=== PATIENT | female | born 1930 | race Hispanic/Latino ===

== ENCOUNTER 2017-12-17 09:55 | Inpatient (IN) | payer MEDICARE, OTHER ==
--- NOTE | 2017-12-17 10:52 | ED PDOC ---
Arrival/HPI - General Chief Complaint: Abdominal Pain Time Seen by Provider: 12/17/17 10:20 Historian: Patient, Family - History of Present Illness Narrative History of Present Illness (Text): 12/17/17 10:41 87 year old female, with past medical history of hypertension, deafness, blood transfusion, diverticulitis, GI bleed, splenic flexure bleed, and an IVC filter , presents to the Emergency Department accompanied by family via EMS for medical evaluation s/p fall yesterday. Patient states she lives home alone with family visiting few days a week. As per patient, she fell yesterday in her bathtub after taking a shower and was unable to get out of the tub for 18 hours. Patient was later found by family, who called EMS yesterday for evaluation. Upon EMS arrival patient denied any medical complaints and refused to come to the hospital. Patient denied hitting her head or any loss of consciousness at the time but family worries she may have passed out secondary to the incident. However, today, patient has been experiencing chest pressure associated with left shoulder, left hip and bilateral ankle discomfort prompting her to present to the Emergency department for evaluation. Patient additionally states "funny feeling" localized to her epigastric area associated with nausea and "burping." Patient currently denies any fevers, chills, headache , dizziness, chest pain, shortness of breath, dyspnea on exertion, cough, abdominal pain, vomiting, diarrhea, back pain, neck pain, or any other complaints. Patient states she is currently waiting to hear back from her PMD regarding a visiting nurse. PMD: Dr. Moore Time/Duration: 24 hours Symptom Onset: Gradual Symptom Course: Unchanged Quality: Aching Activities at Onset: Light Context: Home Past Medical History - Provider Review Nursing Documentation Reviewed: Yes - Infectious Disease Hx of Infectious Diseases: None - Cardiac Hx Cardiac Disorders: Yes Hx Hypertension: Yes - Pulmonary Hx Respiratory Disorders: No - Neurological Hx Neurological Disorder: No - HEENT Hx HEENT Disorder: Yes Hx Deafness: Yes - Renal Hx Renal Disorder: No - Endocrine/Metabolic Hx Endocrine Disorders: No - Hematological/Oncological Other/Comment: GI bleed - Integumentary Hx Dermatological Disorder: No - Musculoskeletal/Rheumatological Hx Falls: No - Gastrointestinal Hx Gastrointestinal Disorders: (gi bleed diverticulitis) - Genitourinary/Gynecological Hx Reproductive Disorders: No - Psychiatric Hx Psychophysiologic Disorder: No Hx Substance Use: No - Surgical History Other/Comment: breast biopsy - Anesthesia Hx Anesthesia Reactions: No Hx Malignant Hyperthermia: No Family/Social History - Physician Review Nursing Documentation Reviewed: Yes Family/Social History: No Known Family HX Smoking Status: Never Smoked Hx Alcohol Use: No Hx Substance Use: No Allergies/Home Meds Allergies/Adverse Reactions: Allergies No Known Allergies Allergy (Verified 03/13/15 09:39) Home Medications: Home Meds Medication Instructions Recorded Confirmed Ramipril 2.5 mg PO DAILY 03/05/15 12/17/17 Review of Systems - Physician Review All systems were reviewed & negative as marked: Yes - Review of Systems Constitutional: absent: Fevers Respiratory: absent: SOB, Cough Cardiovascular: absent: Chest Pain, OLIVEIRA Gastrointestinal: Nausea, Other ("funny feeling" to epigastric area). absent: Abdominal Pain, Diarrhea, Vomiting Musculoskeletal: Other (left shoulder, left hip and bilateral ankle discomfort.) . absent: Back Pain, Neck Pain Neurological: absent: Headache, Dizziness Physical Exam - Physical Exam Narrative Physical Exam (Text): 12/17/17 10:50 Gen: VS reviewed, alert, well developed, well nourished, nontoxic, mild distress. ENT: normal pharynx. Eye: EOMI, PERRL. Neck: no JVD, supple, no adenopathy. No midline tenderness. CV: regular rate, regular rhythm, no rubs, no murmur, no gallops, S1, S2, pulses equal and strong. Pulm: no distress, clear to auscultation, no wheeze, no rhonchi, breath sounds equal, no rales. Abd: soft, nontender, no guarding, no rebound, no rigidity, normal bowel sounds. Ext: Trace edema to bilateral lower extremity. Moderate tenderness to bilateral ankle. Mild to moderate left shoulder tenderness. Moderate left lateral hip tenderness. Skin: good color, no rash, no cyanosis. Healing linear laceration on right phalanges between DIP and PIP. Psych: responds appropriately to questions, normal affect. Neuro: oriented x 3, CN2-12 intact grossly, motor intact, sensation intact. Vital Signs Reviewed: Yes Vital Signs Temp Pulse Resp BP Pulse Ox 12/17/17 09:55 97.9 F 101 H 18 120/79 97 Temperature: Afebrile Blood Pressure: Normal Pulse: Tachycardic Respiratory Rate: Normal Appearance: Positive for: Well-Appearing, Non-Toxic, Comfortable Pain Distress: Mild Mental Status: Positive for: Alert and Oriented X 3 Medical Decision Making ED Course and Treatment: 12/17/17 10:40 Impression: 87 year old female presents to the Emergency department complaining of left shoulder, left hip and bilateral ankle pain s/p fall. Plan: -- VBG -- CT of head -- EKG -- Labs -- Chest X-ray -- X-ray of Left femur -- X-ray of left hip -- X-ray of pelvis -- X-ray of left shoulder -- Zofran -- Urine Culture -- Reassess and disposition Prior Visits: Notes and results from previous visits were reviewed. Progress Notes: - Lab Interpretations Lab Results: 12/17/17 11:05 12/17/17 11:05 Lab Results 12/17/17 11:05: TSH 3rd Generation 3.90 12/17/17 11:05: Sodium 131 L, Chloride 96 L, Potassium 4.4, Carbon Dioxide 23, Anion Gap 16, BUN 29 H, Creatinine 0.9, Est GFR ( Amer) > 60, Est GFR ( Non-Af Amer) 59, Random Glucose 126 H, Calcium 9.2, Total Bilirubin 0.6, AST 26 , ALT 30, Alkaline Phosphatase 90, Troponin I 0.03 D, Total Protein 7.6, Albumin 4.2, Globulin 3.4, Albumin/Globulin Ratio 1.2 12/17/17 11:05: pO2 44, VBG pH 7.36, VBG pCO2 43.0, VBG HCO3 24.3, VBG Total CO2 25.6, VBG O2 Sat (Calc) 81.3 H, VBG Base Excess -1.3 L, VBG Potassium 4.4, Sodium 131.0 L, Chloride 94.0 L, Glucose 124 H, Lactate 1.7, FiO2 21.0, Venous Blood Potassium 4.4 12/17/17 11:05: PT 11.2, INR 0.97, APTT 18.2 L 12/17/17 11:05: WBC 11.0 D, RBC 5.25, Hgb 14.8, Hct 43.4, MCV 82.7, MCH 28.2, MCHC 34.1, RDW 14.4, Plt Count 397, MPV 9.1, Gran % 77.1 H, Lymph % (Auto) 11.7 L, [place] % (Auto) 10.3 H, Eos % (Auto) 0.6 L, Baso % (Auto) 0.3, Gran # 8.44 H, Lymph # (Auto) 1.3, [place] # (Auto) 1.1 H, Eos # (Auto) 0.1, Baso # (Auto) 0.03 - RAD Interpretation Narrative RAD Interpretations (Text): 12/17/17 12:20 CT of head reviewed by radiologist, shows: No acute intracranial abnormality. Mild chronic microangiopathic changes and mild age-related global parenchymal volume loss. 12/17/17 12:20 Chest X-ray reviewed by radiologist, shows: No active pulmonary disease. Asymmetric prominence of the right hilum could be related to prominent descending pulmonary artery however hilar lymphadenopathy/ mass cannot be excluded. If clinically indicated, correlation with CT scan with intravenous contrast may be performed for definitive evaluation. Radiology Orders: 12/17/17 10:41 HEAD W/O CONTRAST [CT] Stat CXR [CHEST ONE VIEW] [RAD] Stat Hip Left [HIP MIN 4V W/ PELVIS LT] [RAD] Stat SHOULDER LEFT [RAD] Stat 12/17/17 10:42 Femur Left [FEMUR MIN 2 VIEWS LT] [RAD] Stat Director Family: Radiologist - EKG Interpretation EKG Interpretation (Text): 12/17/17 11:19 1020: sinus rhythm at 88 bpm, nml qrs, nml axis, no acute sttw abn Interpreted by ED Physician: Yes - Medication Orders Current Medication Orders: Discontinued Medications Ondansetron HCl (Zofran Inj) 4 mg IVP STAT STA Stop: 12/17/17 10:44 Last Admin: 12/17/17 12:03 Dose: 4 mg IVP Administration Document 12/17/17 12:03 SRE (Rec: 12/17/17 12:05 SRE [id number]) Charges for Administration # of IVP Administrations 1 - Scribe Statement The provider has reviewed the documentation as recorded by the Dustinibe Dinora Arizmendi. All medical record entries made by the Scribe were at my direction and personally dictated by me. I have reviewed the chart and agree that the record accurately reflects my personal performance of the history, physical exam, medical decision making, and the department course for this patient. I have also personally directed, reviewed, and agree with the discharge instructions and disposition. Disposition/Present on Arrival - Present on Arrival History of DVT/PE: Yes History of Uncontrolled Diabetes: No Urinary Catheter: No History of Decub. Ulcer: No History Surgical Site Infection Following: None - Disposition Referrals: Sami Moore MD [Staff Provider] - Follow up with primary Forms: [email or web address] [facility] (Ukrainian)
[2017-12-17 11:20] LABS: VENOUS BLOOD GAS BASE EXCESS -1.3 mmol/L (0.0-2.0); VENOUS BLOOD GAS PO2 44 mm/Hg (30-55); VENOUS BLOOD PH 7.36 (7.32-7.43)
[2017-12-17 11:22] LABS: BASO # 0.03 K/mm3 (0.0-2.0); BASO % 0.3 % (0.0-3.0); EOS # 0.1 (0.0-0.7); EOS % 0.6 % (1.5-5.0); GRAN # 8.44 (1.4-6.5); GRAN % 77.1 % (50.0-68.0); HEMOGLOBIN 14.8 g/dL (12.0-16.0); LYMPH # 1.3 (1.2-3.4); LYMPH % 11.7 % (22.0-35.0); MEAN CELL VOLUME 82.7 fl (80.0-105.0); MEAN CORPUSCULAR HEMOGLOBIN 28.2 pg (25.0-35.0); MEAN CORPUSCULAR HGB CONC 34.1 g/dl (31.0-37.0); MEAN PLATELET VOLUME 9.1 fl (7.0-11.0); MONO # 1.1 (0.1-0.6); MONO % 10.3 % (1.0-6.0); RBC 5.25 10^6/uL (3.5-6.1); RED CELL DISTRIBUTION WIDTH 14.4 % (11.5-14.5)
[2017-12-17 11:38] LABS: ALB/GLOB RATIO 1.2 (1.1-1.8); ALBUMIN 4.2 g/dL (3.0-4.8); ALT/SGPT 30 U/L (7-56); AST/SGOT 26 U/L (14-36); BLOOD UREA NITROGEN 29 mg/dL (7-21); CALCIUM 9.2 mg/dL (8.4-10.5); GFR NON-AFRICAN AMERICAN 59
[2017-12-17 11:47] LABS: INR 0.97; PARTIAL THROMBOPLASTIN TIME 18.2 Seconds (25.1-36.5); PROTHROMBIN TIME 11.2 SECONDS (9.4-12.5)
[2017-12-17 11:48] LABS: TROPONIN I 0.03 ng/mL
--- NOTE | 2017-12-17 12:08 | CT ---
Date of service: 12/17/2017 PROCEDURE: CT HEAD WITHOUT CONTRAST. HISTORY: Trauma COMPARISON: None available. TECHNIQUE: Axial computed tomography images were obtained through the head/brain without intravenous contrast. Radiation dose: Total exam DLP = 731.57 mGy-cm. This CT exam was performed using one or more of the following dose reduction techniques: Automated exposure control, adjustment of the mA and/or kV according to patient size, and/or use of iterative reconstruction technique. FINDINGS: HEMORRHAGE: No intracranial hemorrhage. BRAIN: There are mild chronic microangiopathic changes. There is no mass, mass effect or abnormal extra-axial fluid collection. There is no territorial infarction. The midline sagittal structures are normal. VENTRICLES: There is mild age-related global parenchymal volume loss and proportionate enlargement of the ventricles and cortical sulci. CALVARIUM: There is no calvarial fracture or extracranial soft tissue swelling. PARANASAL SINUSES: Predominantly clear. MASTOID AIR CELLS: Predominantly clear. OTHER FINDINGS: None. IMPRESSION: No acute intracranial abnormality. Mild chronic microangiopathic changes and mild age-related global parenchymal volume loss.
--- NOTE | 2017-12-17 12:11 | RAD ---
Date of service: 12/17/2017 PROCEDURE: CHEST RADIOGRAPH, 1 VIEW HISTORY: chest pain COMPARISON: 03/13/2015. FINDINGS: LUNGS: The lungs are clear. There is subsegmental atelectasis in the left lower lobe. There is asymmetric prominence of the right hilum. PLEURA: No pneumothorax or pleural fluid seen. CARDIOVASCULAR: The heart is normal in size. OSSEOUS STRUCTURES: No significant abnormalities. VISUALIZED UPPER ABDOMEN: Normal. OTHER FINDINGS: None. IMPRESSION: No active pulmonary disease. Asymmetric prominence of the right hilum could be related to prominent descending pulmonary artery however hilar lymphadenopathy/ mass cannot be excluded. If clinically indicated, correlation with CT scan with intravenous contrast may be performed for definitive evaluation.
[2017-12-17 12:51] LABS: URINE BILIRUBIN SMALL (NEGATIVE); URINE BLOOD TRACE-INTACT (NEGATIVE); URINE GLUCOSE (UA) NEGATIVE (NEGATIVE); URINE LEUKOCYTE ESTERASE SMALL Leu/uL (NEGATIVE); URINE PROTEIN 30 mg/dL (<30 mg/dL); URINE UROBILINOGEN 0.2 E.U./dL (<1 E.U./dL)
[2017-12-17 12:53] LABS: URINE APPEARANCE CLEAR (CLEAR); URINE COLOR YELLOW (YELLOW)
[2017-12-17 12:58] LABS: URINE BACTERIA MANY (NEG); URINE FINE GRANULAR CAST 0 - 2 /hpf (0-2)
[2017-12-17 12:59] LABS: URINE AMORPHOUS SEDIMENT FEW; URINE COARSE GRANULAR CAST TRACE /hpf (0-2)
--- NOTE | 2017-12-17 13:08 | RAD ---
Date of service: 12/17/2017 PROCEDURE: Radiographs of the Left Shoulder HISTORY: trauma COMPARISON: No prior. FINDINGS: BONES: There is diffuse bone demineralization. Bone alignment is normal. There is no acute displaced fracture or bone destruction. JOINTS: Mild degenerative osteoarthrosis in the glenohumeral joint. The acromioclavicular joint is normal. SOFT TISSUES: Normal. OTHER FINDINGS: None. IMPRESSION: No acute displaced fracture or dislocation.
--- NOTE | 2017-12-17 13:09 | RAD ---
Date of service: 12/17/2017 PROCEDURE: Left Femur Radiographs. HISTORY: Fall, injury COMPARISON: None. TECHNIQUE: AP and Lateral Radiographs of the left femur. FINDINGS: FEMUR: There is diffuse bone demineralization. There is no acute displaced fracture or bone destruction. SOFT TISSUES: Normal. OTHER FINDINGS: None. IMPRESSION: No acute fracture or dislocation.
--- NOTE | 2017-12-17 13:10 | RAD ---
PROCEDURE: Left Hip X-ray Radiographs. HISTORY: trauma COMPARISON: None. FINDINGS: BONES: There is diffuse bone demineralization. There is no acute displaced fracture or bone destruction. Bone alignment is normal. JOINTS: There is moderate degenerative osteoarthrosis in the left hip joint. The right hip joint space is preserved. SOFT TISSUES: Normal. OTHER FINDINGS: Lobular calcification in the left hemipelvis likely represents a calcified fibroid. IMPRESSION: No acute displaced fracture or dislocation. Please note occult fractures cannot be excluded on plain radiographs. If there is a persistent clinical concern, an MRI of the hip may be performed for further evaluation.
[2017-12-17] MEDS ORDERED: cefTRIAXone 1 gm 1 GM/100 ML BAG IVPB STA (14:56)
[2017-12-17] MEDS ORDERED: Iohexol 350 MG/100 ML VIAL ONE (16:54)
--- NOTE | 2017-12-17 18:52 | CT ---
Date of service: 12/17/2017 PROCEDURE: CT Chest, Abdomen and Pelvis with intravenous contrast HISTORY: Multiple falls and abdominal pain COMPARISON: 03/06/2015 CT abdomen and pelvis. TECHNIQUE: IV dose administered: 98 cc Omnipaque 350. Radiation dose: Total exam DLP = 1242.06 mGy-cm. This CT exam was performed using one or more of the following dose reduction techniques: Automated exposure control, adjustment of the mA and/or kV according to patient size, and/or use of iterative reconstruction technique. FINDINGS: CT CHEST WITH CONTRAST: LUNGS: Clear. No nodule, mass or consolidation. MEDIASTINUM: Dilated main pulmonary artery 4.2 cm consistent with pulmonary arterial hypertension. No evidence of aortic aneurysm.Incidental finding(s): Calcification within the mitral valve annulus. LYMPH NODES: Unremarkable. PLEURA: Unremarkable. No pneumothorax. No pleural fluid. BONES: Unremarkable. OTHER FINDINGS: Enlarged heterogeneous contrast enhancement of the thyroid particularly the right lobe extending into the intrathoracic space, superior mediastinum. CT ABDOMEN AND PELVIS: LIVER: Unremarkable. No gross lesion or ductal dilatation. GALLBLADDER AND BILE DUCTS: Cholelithiasis without CT evidence of acute cholecystitis. PANCREAS: Unremarkable. No gross lesion or ductal dilatation. SPLEEN: Unremarkable. ADRENALS: Unremarkable. No mass. KIDNEYS AND URETERS: Unremarkable. No hydronephrosis. No solid mass. Incidental finding(s): Simple renal cysts bilaterally. Largest in the lower pole of the left kidney 3.1 cm. VASCULATURE: IVC filter identified. . No aortic aneurysm. BOWEL: Constipation without fecal impaction or obstruction. Diverticulosis without an acute inflammatory component or other associated pathologic process. Surgical suture lines identified small bowel in the right hemicolon. APPENDIX: Normal appendix. PERITONEUM: Unremarkable. No free fluid. No free air. LYMPH NODES: Unremarkable. No enlarged lymph nodes. BLADDER: Unremarkable. REPRODUCTIVE: Unremarkable. BONES: No acute fracture. Scoliosis, secondary degenerative change at multiple levels. OTHER FINDINGS: Anterior abdominal wall/periumbilical hernia. IMPRESSION: CT thorax: No acute findings related to/accounting for the clinical presentation. Additional benign and/or incidental findings described above. CT abdomen and pelvis: Cholelithiasis without CT evidence of acute cholecystitis. Additional benign and/or incidental findings described above. No acute findings related to/accounting for the clinical presentation.
--- NOTE | 2017-12-17 20:30 | CARD ---
APPROVED REPORT Date of service: 12/17/2017 EKG Measurement Heart [id number] <Conclusion> Sinus rhythm with premature atrial complexes Otherwise normal ECG
[2017-12-18 04:52] VITALS: BMI 27.7
[2017-12-18] MEDS: Multivitamin Therapeutic Tab PO SCH (09:24)
[2017-12-18] MEDS: hydroCHLOROthiazide-Triamterene 25 mg-37.5 mg Cap UD PO SCH (09:24)
[2017-12-18] MEDS: Pantoprazole 20 mg EC Tab PO SCH (09:25)
[2017-12-18] MEDS ORDERED: NEXIUM PO SCH (10:00)
[2017-12-18] MEDS: POLYETHYLENE GLYCOL 3350 17 GM/Dose PACKET PO SCH (12:02)
--- NOTE | 2017-12-18 15:19 | MRI ---
Date of service: 12/18/2017 PROCEDURE: MRI BRAIN WITHOUT CONTRAST HISTORY: syncope COMPARISON: None available. TECHNIQUE: Multiplanar, multisequence MR images of the brain were obtained without intravenous contrast enhancement. FINDINGS: HEMORRHAGE: None DWI: No evidence of an acute or early subacute infarction. BRAIN PARENCHYMA: No mass effect or edema. Severe chronic microvascular changes are seen in the periventricular white matter and the riya. There are no acute findings VENTRICLES: Unremarkable. No hydrocephalus. CRANIUM: Unremarkable. ORBITS: Grossly unremarkable. PARANASAL SINUSES/MASTOIDS: Clear VASCULAR SYSTEM: Skull base flow voids intact. OTHER FINDINGS: None. IMPRESSION: No acute intracranial findings
--- NOTE | 2017-12-18 16:31 | HP ---
CHIEF COMPLAINT: Syncope x2 at home. HISTORY OF PRESENT ILLNESS: This is an 87-year-old woman whom I have known for many years, who lives alone at home with neighbors who keep a close eye on her. She had a fall approximately 1 week ago where she woke up several hours later, did not recall the events of the fall. Fell in the bathtub, but was down for several hours and then when she awoke, could not get up. Emergency squad came, helped her to her feet. She declined hospital evaluation. I saw her in a house visit. She was bruised, but no apparent severe injury and went on. The following week was uneventful. She was ambulating rather well. Denied chest pain, palpitations, shortness of breath. Had another syncopal episode yesterday prompting her to come to the emergency room. She reports now she is generalized weak and willing to be admitted after this syncopal episode. PAST MEDICAL HISTORY: Significant for hypertension since 2000, negative for diabetes, hyperlipidemia since the year 1999. She has no history of tuberculosis, asthma, seizures, gout, COPD, TIA, CVA, MD, coronary artery disease or cancers of any type. PAST SURGICAL HISTORY AND HOSPITALIZATIONS: Include GI bleed in 1985, breast biopsy in 1987, fractured wrist in 1995, perforated duodenal ulcer in the year 1999 at which time she went to the OR for surgical repair, bilateral cataract surgery in 2012 and hospitalized with GI bleed in 03/2015 felt to be diverticular in origin. ALLERGIES: SHE HAS NO KNOWN ALLERGIES. SOCIAL HISTORY: Quit smoking more than 30 years ago. Rarely drinks alcohol and drinks only decaffeinated coffee. She had a sigmoidoscopy in 1993 and 1997, colonoscopy with the more recent GI bleed work up in 2014. Her last mammogram was in 2011. She had a stress test in 2001 which was reported abnormal and had been treated with nitrates conservatively ever since as she is asymptomatic and chest pain free. FAMILY HISTORY: Her mother at age 93 in the year 1998. Her father at age 34, sudden when the patient was 12 years old. He was with the [employer]. She is the youngest of 2 siblings. Her sister in 2006. She is single. No children. Retired from [employer] in 1985, where I first met her. Problem list at the office includes hypertension, hyperlipidemia, osteoarthritis, overweight, mitral regurgitation, aortic stenosis, and abnormal stress test in 2016. REVIEW OF SYSTEMS: Significant for hearing loss and pains associated with her osteoarthritis. PHYSICAL EXAMINATION GENERAL: The patient was seen in the emergency room, slept night before this Saturday afternoon and again late Saturday evening. She is awake, alert, clear, appropriate and oriented, in no acute distress with generalized aches from the 2 recent falls from syncope. HEENT: Normocephalic, atraumatic. Conjunctivae pink. Mucous membranes moist. NECK: Supple without masses. Thyroid nonpalpable. LUNGS: Clear to auscultation with good air exchange right and left. HEART: Regular, not tachycardic. 3/6 murmur of mitral regurgitation. ABDOMEN: Overweight, soft, nontender. BREASTS: Not examined. EXTREMITIES: Showed no edema. IMPRESSION: 1. Syncope x2 with fall at home. 2. History of abnormal stress test in 2001 in a patient who is asymptomatic on her current medication regimen. 3. Hypertension. 4. Hyperlipidemia. 5. Osteoarthritis. 6. Overweight. 7. Murmurs of mitral regurgitation and aortic stenosis. 8. Hearing loss. PLAN: Resume prior medications from home including omeprazole, isosorbide, Ramipril and Triam HCTZ. Syncope workup to include carotid ultrasound, telemetry monitoring. Followup with cardiology regarding abnormal thallium stress test and physical therapy conditioning. If her syncope and cardiac and neuro work up are unremarkable, My next step will be for her to go to the transitional care unit at [facility] for an additional 8 days of physical therapy and conditioning. Braulio Moore MD MTDWang
--- NOTE | 2017-12-18 16:31 | US ---
PROCEDURE: Bilateral carotid artery duplex ultrasound HISTORY: Carotid stenosis syncope PHYSICIAN(S): Christos Cabral MD. TECHNIQUE: Duplex sonography and color-flow Doppler were used to evaluate the carotid bifurcations and limited segments of the vertebral arteries bilaterally. FINDINGS: There is mild smooth heterogeneous plaque noted at the carotid bifurcations bilaterally. The peak systolic velocity in the proximal right internal carotid artery is 78 cm/sec. This corresponds to a 20 to 39% proximal right ICA stenosis. Normal systolic velocities are noted in the proximal right external carotid artery. There is blunted antegrade flow in the small right vertebral artery. The peak systolic velocity in the proximal left internal carotid artery is 73 cm/sec. This corresponds to a 20 to 39% proximal left ICA stenosis. Normal systolic velocities are noted in the proximal left external carotid artery. There is antegrade flow in the large dominant left vertebral artery. IMPRESSION: 1. Bilateral 20-39% proximal ICA stenoses. 2. Antegrade flow in both vertebral arteries.
[2017-12-19 06:20] LABS: BASO # 0.04 K/mm3 (0.0-2.0); BASO % 0.3 % (0.0-3.0); EOS # 0.3 (0.0-0.7); EOS % 2.1 % (1.5-5.0); GRAN # 9.8 (1.4-6.5); GRAN % 74.7 % (50.0-68.0); LYMPH # 1.8 (1.2-3.4); LYMPH % 13.6 % (22.0-35.0); MEAN CELL VOLUME 82.5 fl (80.0-105.0); MEAN CORPUSCULAR HEMOGLOBIN 27.4 pg (25.0-35.0); MEAN CORPUSCULAR HGB CONC 33.2 g/dl (31.0-37.0); MEAN PLATELET VOLUME 8.7 fl (7.0-11.0); MONO # 1.2 (0.1-0.6); MONO % 9.3 % (1.0-6.0); RBC 4.16 10^6/uL (3.5-6.1); RED CELL DISTRIBUTION WIDTH 14.7 % (11.5-14.5); WHITE BLOOD COUNT 13.1 10^3/ul (4.5-11.0)
[2017-12-19 06:23] LABS: HEMOGLOBIN 11.4 g/dL (12.0-16.0)
[2017-12-19 06:51] LABS: TROPONIN I 0.03 ng/mL
[2017-12-19 06:55] LABS: ALB/GLOB RATIO 1.1 (1.1-1.8); ALBUMIN 3.3 g/dL (3.0-4.8); CALCIUM 8.6 mg/dL (8.4-10.5)
--- NOTE | 2017-12-19 07:39 | PN ---
DATE: 12/18/2017 DAILY PROGRESS NOTE SUBJECTIVE: The patient is an 87-year-old female with a history of hypertension, gastritis, GI bleed from the splenic flexure, deafness, status post breast biopsy, status post inferior vena cava filter placement, who was admitted on 12/17/2017 after multiple falls at home. The patient apparently fell in the bathtub and was down for several hours. Her workup showed the EKG to be in regular sinus rhythm. Chest x-ray showed no acute disease. There was an enlarged right hilum; however, on CAT scan, this was shown to be an enlarged pulmonary artery. She also had an enlarged thyroid, gallbladder calculi on CAT scan. CAT scan of the head was negative. X-rays of the hip, left shoulder and pelvis were negative for fracture. When seen today, the patient is awake, alert and oriented. She is afebrile. Blood pressure is 113/57, heart rate is 83 beats per minute. Her laboratory studies shows slightly depressed sodium of 131, BUN and creatinine are 29 and 0.9, glucose is 126. The patient was feeling well. She had no complaints. She denies any aches or pains from her fall. She did, however, complain of constipation and MiraLax was ordered for this. The patient agrees that she would do good with physical therapy, so she will be evaluated and possibly transferred to the Transitional Care Unit. We will continue to follow the patient closely. Sami Moore MD
[2017-12-19] MEDS: Sodium Chloride 0.9% 1,000 ML IV SCH ×2 (09:11→17:35)
[2017-12-19] MEDS: hydroCHLOROthiazide-Triamterene 25 mg-37.5 mg Cap UD PO SCH (09:11)
[2017-12-19] MEDS: POLYETHYLENE GLYCOL 3350 17 GM/Dose PACKET PO SCH (09:11)
[2017-12-19] MEDS: Pantoprazole 20 mg EC Tab PO SCH (09:12)
[2017-12-19] MEDS: Multivitamin Therapeutic Tab PO SCH (09:12)
[2017-12-19] MEDS ORDERED: Magnesium Hydroxide Susp 30 ml UD PO PRN (10:24)
--- NOTE | 2017-12-19 15:51 | CARD ---
APPROVED REPORT Date of service: 12/19/2017 EXAM: Two-dimensional and M-mode echocardiogram with Doppler and color Doppler. INDICATION MR/ 2D DIMENSIONS Left Atrium (2D)5.6 (1.6-4.0cm)IVSd1.0 (0.7-1.1cm) LVDd4.5 (3.9-5.9cm)LVOT Diameter1.4 (1.8-2.4cm) PWd1.2 (0.7-1.1cm)LVDs2.8 (2.5-4.0cm) FS (%) 37.4 %LVEF (%)67.6 (>50%) M-Mode DIMENSIONS Aortic Root3.10 (2.2-3.7cm)Aortic Cusp Exc.0.60 (1.5-2.0cm) Aortic Valve AoV Peak Arshuppz373.0cm/sAoV VTI69.4cmAO Peak GR.71mmHg LVOT Peak Cbnoazef696.0cm/sLVOT VTI25.60cmAO Mean GR.36mmHg EDMAR (VMAX)0.09qr0DZT (VTI)0.57cm2 Mitral Valve MV E Jyyuwjdy317.0cm/sMV E Peak Gr.17mmHgMV A Nreemfyo822.0cm/s MV E Mean Gr.9mmHgMV OXB434peJ/A ratio1.0 MVA (PHT)1.91cm2 TDI Lateral E' Peak V6.63cm/sMedial E' Peak V4.48cm/sE/Lateral E'18.4 E/Medial E'27.2 Pulmonary Valve PV Peak Tzmzreym64.8cm/sPV Peak Grad.3mmHg Tricuspid Valve TR Peak Gbvzsrre341uz/sRAP XNYDODDA62lhBdWD Peak Gr.61mmHg OZKO95ffVb LEFT VENTRICLE The left ventricle is normal size. There is mild concentric left ventricular hypertrophy. The left ventricular function is normal.EF-65% There is normal LV segmental wall motion. Transmitral Doppler flow pattern is Grade III-reversible restrictive diastolic dysfunction. No left ventricle thrombus noted on this study. There is no ventricular septal defect visualized. There is no left ventricular aneurysm. There is no mass noted in the left ventricle. RIGHT VENTRICLE The right ventricle is mildly to moderately dilated. There is normal right ventricular wall thickness. Systolic function is mildly to moderately reduced. ATRIA The left atrium is severely dilated. The right atrium is mildly dilated. The interatrial septum is intact with no evidence for an atrial septal defect. AORTIC VALVE The aortic valve is calcified and displays decreased opening. There is trace to mild aortic regurgitation. There is severe valvular aortic stenosis. There is no aortic valvular vegetation. MITRAL VALVE The mitral valve is calcified and displays decreased opening. Mitral regurgitation is moderate to severe. There is mild to moderate mitral valve stenosis. There is no evidence of mitral valve prolapse. TRICUSPID VALVE The tricuspid valve leaflets are thickened , but open well. There is moderate tricuspid regurgitation.RVSP-72 mmof hg. There is no tricuspid valve stenosis. There is no tricuspid valve prolapse or vegetation. PULMONIC VALVE The pulmonic valve is mildly thickened. There is mild pulmonic valvular regurgitation. There is no pulmonic valvular stenosis. GREAT VESSELS The aortic root is normal in size. The ascending aorta is normal in size. The pulmonary artery is normal. The IVC is normal in size and collapses >50% with inspiration. PERICARDIAL EFFUSION There is no pleural effusion. There is no pericardial effusion. <Conclusion> The left ventricle is normal size. There is mild concentric left ventricular hypertrophy. The left ventricular function is normal.EF-65% There is trace to mild aortic regurgitation. There is severe valvular aortic stenosis. Mitral regurgitation is moderate to severe. There is mild to moderate mitral valve stenosis. There is moderate tricuspid regurgitation.RVSP-72 mmof hg. There is mild pulmonic valvular regurgitation. The IVC is normal in size and collapses >50% with inspiration. There is no pericardial effusion.
[2017-12-19 17:35] VITALS: RESP 18
[2017-12-19] MEDS ORDERED: Sodium Chloride 0.9% 1,000 ML IV SCH (21:32)
[2017-12-19 23:20] LABS: URINE BILIRUBIN NEGATIVE (NEGATIVE); URINE BLOOD NEGATIVE (NEGATIVE); URINE GLUCOSE (UA) NEGATIVE (NEGATIVE); URINE LEUKOCYTE ESTERASE MODERATE Leu/uL (NEGATIVE); URINE PROTEIN NEGATIVE mg/dL (<30 mg/dL); URINE UROBILINOGEN 0.2 E.U./dL (<1 E.U./dL)
[2017-12-19 23:24] LABS: URINE APPEARANCE SL CLOUDY (CLEAR); URINE COLOR YELLOW (YELLOW)
[2017-12-19 23:36] LABS: URINE BACTERIA FEW (NEG); URINE RBC 0 - 2 /hpf (0-2)
--- NOTE | 2017-12-20 01:21 | PN ---
DATE: 12/19/2017 SUBJECTIVE: The patient was seen this morning in room 264, bed 1 with young lady, close friend at her bedside. She is awake, alert, clear, oriented with no new complaints. Feels now better. She is still weak on her feet. PHYSICAL EXAMINATION: LUNGS: Show good aeration in right and left. HEART: Regular, not tachycardiac. EXTREMITIES: Show no edema. Review of her labs show her white count to be elevated. Sodium and chloride are low. BUN is elevated, but creatinine is steady, perhaps this is related to IV contrast dye on admission. Therefore, we will repeat urinalysis, urine culture and chest x-ray. Ordered CBC in the morning. Chest x-ray to rule out infiltrate. Had IV fluids, normal saline at about 100 mL an hour for approximately 10 hours until we will get morning labs. We will keep labs ordered for the morning and we will follow closely. Hopefully, then we will be able to do more detailed TCU evaluation and more valued physical therapy evaluation and transfer to the TCU. Carotid ultrasound is negative. MRI of the spine is unremarkable. Patient did report some vague chest discomfort. On exam there is murmurs of mitral regurgitation and aortic stenosis, so we will request echo and ask kitchen clerk, Dr. Tommy Lamb to evaluate the patient. Also, to comment on the two episodes of the junctional rhythm noted on phototypesetting equipment monitor earlier today. Braulio Moore MD [facility]PITALWang
[2017-12-20 06:32] LABS: BASO # 0.05 K/mm3 (0.0-2.0); BASO % 0.4 % (0.0-3.0); EOS # 0.7 (0.0-0.7); GRAN % 78.6 % (50.0-68.0); HEMOGLOBIN 11.4 g/dL (12.0-16.0); LYMPH # 1.3 (1.2-3.4); LYMPH % 9.6 % (22.0-35.0); MEAN CELL VOLUME 82.9 fl (80.0-105.0); MEAN CORPUSCULAR HEMOGLOBIN 27.5 pg (25.0-35.0); MEAN CORPUSCULAR HGB CONC 33.1 g/dl (31.0-37.0); MEAN PLATELET VOLUME 9.2 fl (7.0-11.0); MONO # 0.9 (0.1-0.6); MONO % 6.4 % (1.0-6.0); PLATELET COUNT 380 10^3/uL (120.0-450.0); RBC 4.15 10^6/uL (3.5-6.1); RED CELL DISTRIBUTION WIDTH 14.7 % (11.5-14.5); WHITE BLOOD COUNT 13.7 10^3/ul (4.5-11.0)
[2017-12-20 06:35] VITALS: O2SAT 96
[2017-12-20 08:06] LABS: ALB/GLOB RATIO 1.1 (1.1-1.8); ALBUMIN 3.4 g/dL (3.0-4.8); ALT/SGPT 28 U/L (7-56); AST/SGOT 22 U/L (14-36); BLOOD UREA NITROGEN 34 mg/dL (7-21); CALCIUM 8.5 mg/dL (8.4-10.5); GFR NON-AFRICAN AMERICAN 59
--- NOTE | 2017-12-20 09:25 | RAD ---
Date of service: 12/20/2017 HISTORY: elevaed wbc COMPARISON: 12/17/2017 TECHNIQUE: Chest PA and lateral FINDINGS: LUNGS: There is elevation of the right hemidiaphragm. No definite infiltrate. PLEURA: No significant pleural effusion identified. No pneumothorax apparent. CARDIOVASCULAR: Cardiomegaly and heavy calcification of the mitral valve OSSEOUS STRUCTURES: No significant abnormalities. VISUALIZED UPPER ABDOMEN: Normal. OTHER FINDINGS: None. IMPRESSION: No evidence of pneumonia
[2017-12-20] MEDS: POLYETHYLENE GLYCOL 3350 17 GM/Dose PACKET PO SCH (10:29)
[2017-12-20] MEDS: Multivitamin Therapeutic Tab PO SCH (10:30)
[2017-12-20] MEDS: Pantoprazole 20 mg EC Tab PO SCH (10:32)
[2017-12-20 18:00] VITALS: BP 138/67; PULSE 77; TEMP 98.3
--- NOTE | 2017-12-23 08:35 | CON ---
DATE: 12/20/2017 INDICATIONS: Syncope, aortic stenosis, and mitral regurgitation. 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 She fell in the bathtub where she stayed for 18 hours until a neighbor rescued her. She had previous falls. She is not quite sure what happened. She remembers taking a shower and turning off the water and then woke up on the floor. She does not sustain she slipped and fell. There were no traumatic injuries. She was admitted to telemetry which demonstrated sinus rhythm, predominantly. There is a mention of episodes of junctional rhythm, but I did not see strips to that effect. Today, she denies chest pain or shortness of breath. An echocardiogram demonstrated aortic stenosis and I mentioned to her. She is not interested in any interventions. She notes occasional upper chest pain which may be related to the fall. There is no shortness of breath at rest. There is no orthopnea, PND, vertigo, edema, claudication, fever, chills, cough, sputum production, hemoptysis, abdominal pain, nausea, vomiting, diarrhea, constipation, or melena. PAST MEDICAL HISTORY: Notable for aortic stenosis and mitral regurgitation documented on a recent echocardiogram. She has had an abnormal nuclear stress test in 2016. I do not have the report for details. She was treated medically at that time. Apparently, she declined catheterization. She has been treated for hypertension, hyperlipidemia, and osteoarthritis. She has a history of GI bleeding possibly from diverticulosis. She had perforated the duodenal ulcer. She has cataracts, IVC filter, gallstones on her recent CAT scan, osteoarthritis. There is no history of rheumatic fever, CHF, myocardial infarction, diabetes, stroke, or TIA. CURRENT MEDICATIONS: Include multivitamins, Tylenol, isosorbide, Lipitor, Mobic, Nexium, Dyazide, and ramipril. ALLERGIES: NO KNOWN MEDICATION ALLERGIES. SOCIAL HISTORY: She lives alone at home, a neighbor watches over her. She is a remote smoker. She does not drink alcohol significantly. She is ambulatory, but very limited. FAMILY HISTORY: Not contributory. REVIEW OF SYSTEMS: A 10-point review of systems is somewhat limited by deafness, but did not disclose any additional findings. PHYSICAL EXAMINATION: GENERAL: She is a well-developed elderly woman, lying in bed on telemetry, in no acute distress. VITAL SIGNS: Notable for sinus rhythm in the 70s, afebrile, blood pressure 124/73, respirations 18, O2 sat 96% to 97%. Postural vital signs ordered, but I do not see that they were done. HEENT: Reveal no neck vein distention, thyromegaly, or carotid bruits. Mucous membranes moist. Conjunctivae pink. NECK: Supple. LUNGS: Moe clear with diminished breath sounds at the bases. HEART: Reveals systolic murmur in the aortic space along the left sternal border and at the cardiac apex, is predominately holosystolic at the apex consistent with mitral regurgitation. ABDOMEN: Soft. Bowel sounds present. No mass, organomegaly, tenderness, rebound, or guarding. No CVA tenderness. No palpable abdominal aortic aneurysm. EXTREMITIES: Reveal no cyanosis, clubbing, or edema. NEUROLOGIC: Awake, alert, oriented, deaf. SKIN: Warm and dry. No rash or cellulitis. LABORATORY AND IMAGING: Chest x-ray reveals no active disease. EKG demonstrates regular sinus rhythm, APCs, ST-T wave changes. Multiple radiology studies including CT of the head, x-ray of the hip and pelvis, shoulder x-ray, femur x-ray, chest and abdominal pelvis CT, and brain MRI are all noted. A carotid ultrasound demonstrated bilateral 20% to 39% stenoses. White count 13,700, hemoglobin 11.4, hematocrit 34.4 down from 14.8 and 43.4 on admission, platelet count normal. PT/INR unremarkable. PTT 18.2. Venous blood gases are noted. Electrolytes noted with a sodium of 129 down from 131 on admission. BUN 34, creatinine 0.9. Magnesium 1.9. LFTs unremarkable. Troponin 0.03. CK 51. TSH normal. Urinalysis is noted. IMPRESSION: Belem Damon is an 87-year-old woman with a history of abnormal nuclear stress test suggesting underlying coronary artery disease with evidence of aortic stenosis and mitral regurgitation. Her echocardiogram interpreted to show severe aortic stenosis, bjioamxh-oo-[id number] mitral regurgitation, normal left ventricular function with mild concentric left ventricular hypertrophy. There is also moderate tricuspid regurgitation, ppwmbiwf-ta-xsqbdu pulmonary hypertension, and mild pulmonary regurgitation. She is on telemetry. We will continue to monitor her for arrhythmia. We will check postural vital signs. Given her low sodium, I will hold the hydrochlorothiazide. I will stop isosorbide for the time being given her history of syncope. She is getting magnesium replacement. She is getting saline for hyponatremia. She is getting lisinopril, atorvastatin, Mobic, Protonix, multivitamin, and Tylenol p.r.n. I will discuss her case further with you. I will get information regarding her nuclear stress test. At this time, she does not appear to want any intervention for her underlying cardiac disease which includes probable coronary artery disease, severe aortic stenosis, ubmyihte-yf-zkwvdp mitral regurgitation, and severe pulmonary hypertension. Given her wishes, a conservative course of cardiac care is anticipated. She should be considered a high fall risk. She will need to be in a protected environment. We will adjust her medications. Continue to monitor her on telemetry. I will follow along with you. Robert Knight MD
--- NOTE | 2017-12-23 08:48 | DS ---
HISTORY OF PRESENT ILLNESS: The patient is an 87-year-old female with a history of hypertension, gastritis, GI bleed from the splenic flexure, deafness, status post breast biopsy, status post inferior vena cava filter placement who was admitted on 12/17 after multiple falls at home. She fell on the bathtub and was down for several hours before being found and brought to the emergency room. At that time, her EKG showed she was in regular sinus rhythm. Chest x-ray was negative. There was enlarged hilum noted, but CAT scan revealed that to be an enlarged pulmonary artery. She also has an enlarged thyroid and gallbladder calculi on CAT scan. X-rays of the head, hip, left shoulder and pelvis were negative for fracture. The patient did well on the medical floor. She was awake, alert and oriented. She underwent echocardiography which showed normal ejection fraction with severe aortic stenosis, [id number]-[id number] mitral stenosis. So, arrangements were being made for the patient to be transferred to the Transitional Care Unit. The patient agrees with us that what she needs is physical therapy to strengthen the legs as to the reason for her falls simply her legs giving out and feeling weak. As the room became available, the patient is transferred to the Transitional Care Unit for physical therapy and ambulation. FINAL DIAGNOSES: 1. Frequent falls at home. 2. Leg weakness. 3. Aortic stenosis. 4. Mitral valve stenosis. 6. Tricuspid valve regurgitation. 7. Pulmonary hypertension. 8. Goiter. 9. Cholelithiasis. Sami Moore MD
== END 2017-12-20 18:23 | DRG 309 ==
LOC: ED 09:55 → ERH 14:54 → 2RNO 23:32
PROVIDERS: ADMIT Internal Medicine; ATTEND Internal Medicine
DX: I49.9 Cardiac arrhythmia, unspecified (principal); E87.1 Hypo-osmolality and hyponatremia; R55 Syncope and collapse; I10 Essential (primary) hypertension; R29.6 Repeated falls; K29.70 Gastritis, unspecified, without bleeding; I08.3 Combined rheumatic disorders of mitral, aortic and tricuspid valves; I27.20 Pulmonary hypertension, unspecified; E78.5 Hyperlipidemia, unspecified; E04.9 Nontoxic goiter, unspecified; K80.20 Calculus of gallbladder without cholecystitis without obstruction; M25.571 Pain in right ankle and joints of right foot; M25.572 Pain in left ankle and joints of left foot; M25.512 Pain in left shoulder; M25.552 Pain in left hip; Z91.81 History of falling; H91.90 Unspecified hearing loss, unspecified ear; Z87.891 Personal history of nicotine dependence